=== PATIENT | female | born 1995 | race Caucasian/White ===

== ENCOUNTER 2020-05-01 10:28 | Outpatient (NON) | payer OTHER, SELFPAY ==
[2020-05-02 01:18] LABS: SARS-CoV-2 RNA PCR Negative
== END 2020-05-01 10:29 ==
PROVIDERS: Visit Provider Nurse Practitioner Family
DX: Z20.828 Contact with and (suspected) exposure to other viral communicable diseases (principal); R09.89 Other specified symptoms and signs involving the circulatory and respiratory systems
CPT/HCPCS: 87635; C9803; U0003